=== PATIENT | male | born 1955 | race Caucasian/White ===

== ENCOUNTER 2019-10-30 09:29 | Emergency (ER) | payer OTHER, SELFPAY ==
[2019-10-30 09:42] VITALS: BP 176/96; PULSE 98; RESP 20; TEMP 36.6; O2SAT 98
--- NOTE | 2019-10-30 10:00 | ED.GENADULT ---
HPI - General Adult General Chief complaint: Extremity Injury, Lower Stated complaint: BONE SPUR ON L HEEL Time Seen by Provider: 10/30/19 10:03 Source: patient and RN notes reviewed Mode of arrival: ambulatory Limitations: no limitations History of Present Illness HPI narrative: This is a 64 years old male presents to the office for an evaluation of left foot bone spur flared for three days. He was diagnosted with bone spur in 2016 and saw ornamental iron worker for it. He opt not to do surgery at the time because his pain was controlled with steriod. He has been trying advil for his pain with no relief. His foot doctor is out for conference. Denies recent trauma or injury. Denies history of GI bleeding or kidney disorder. Related Data Allergies Allergy/AdvReac Type Severity Reaction Status Date / Time No Known Allergies Allergy Verified 10/30/19 09:41 Review of Systems Review of Systems: Narrative: CONSTITUTIONAL: Denies fever or feeling ill ENT: Denies congestion CARDIOVASCULAR: Denies chest pain RESPIRATORY: Denies cough GASTROINTESTINAL: Denies nausea, vomiting SKIN: Denies rash MUSCULOSKELETAL:Reports left foot heel pain with slight swelling and painful to walk. He wears boothcamp. NEUROLOGIC: Denies lightheaded PMFSH Past Medical History Medical History Dilated cardiomyopathy Hemochromatosis Hypertension Surgical History Surgical History H/O skin graft History of cholecystectomy Family History Family History Father Hypertension Mother Hypertension COPD (chronic obstructive pulmonary disease) Social History Social History Smoking status: Never smoker Second hand tobacco smoke exposure: Yes Alcohol intake: current Substance use: never Substance use type: does not use Gender identity (if verbalized by the patient): Male Comments At time of signature, I agree with nursing past medical, surgical, social and family history. There is no relevant family history pertinent to the presenting complaint. Exam Narrative: Exam Narrative: GENERAL: This is a well-nourished, well-developed patient, in no apparent distress. CARDIOVASCULAR: Regular rate and rhythm without murmurs, gallops, or rubs. RESPIRATORY: Clear to auscultation. Breath sounds equal bilaterally. No wheezes, rales, or rhonchi. NEURO: awake, alert, and oriented to person, place and time. There were no obvious focal neurologic abnormalities. Steady gait EXTREMITIES: Affected lateral ankle not swollen but there is tenderness over the heel with palpation of the foot. Normal ROM of foot/ankle. Pedal pulse intact. No deformity. The skin is intact. Tru Coma Scale Eye Opening: Spontaneous 4 [place] Coma Scale Motor: Obeys Commands 6 [place] Coma Scale Verbal: Oriented 5 Course Vital Signs Vital signs: Vital Signs Temperature 97.8 F 10/30/19 09:42 Pulse Rate 98 10/30/19 09:42 Respiratory Rate 10/30/19 09:42 Blood Pressure 176/96 H 10/30/19 09:42 Pulse Oximetry 98 10/30/19 09:42 Temperature 97.8 F 10/30/19 09:42 Pulse Rate 98 10/30/19 09:42 Respiratory Rate 10/30/19 09:42 Blood Pressure 176/96 H 10/30/19 09:42 Pulse Oximetry 98 10/30/19 09:42 Medical Decision Making MDM Narrative Medical decision making narrative: Discharge instructions reviewed with patient, as well as provided in writing per nursing staff. The instructions also include specific and strict return/GO TO THE ER as well as f/u information. All questions have been answered, and the patient deny any further questions with discharge and discharge plan. Differential Diagnosis Differential Diagnosis: muscle pain, pain control, arthritis Vital Signs Vital Signs: Vital Signs Temperature 97.8 F 10/30/19 09:
[2019-10-30] MEDS: KETOROLAC 30 MG/ML VIAL (*BKC) 60 MG IM (10:18)
== END 2019-10-30 10:51 | disposition home or self-care (01) ==
PROVIDERS: Emergency Provider Nurse Practitioner; PCP Family Medicine
DX: M79.672 Pain in left foot (principal); I10 Essential (primary) hypertension
CPT/HCPCS: 96372; 99213; G0463; J1885

== ENCOUNTER 2022-12-25 08:45 | Outpatient (CLI) | payer MEDICARE, SELFPAY ==
[2022-12-25 09:10] LABS: Basophils Absolute Auto 0.1 K/mm3 (0.0-0.1); Eosinophils Absolute Auto 0.1 K/mm3 (0-0.3); Eosinophils Percent Auto 1.3 % (0-4.4); Hematocrit 51.5 % (42.0-52.0); Hemoglobin 17.1 g/dL (14.0-18.0); Immature Granulocyte Absolute 0.03 K/mm3 (0.00-0.031); Immature Granulocyte Percent A 0.4 % (0-0.5); Lymphocytes Absolute Auto 1.49 K/mm3 (0.9-3.2); Lymphocytes Percent Auto 21.3 % (18.3-44.2); Mean Corpuscular HGB Conc 33.2 g/dl (32-36); Mean Corpuscular Hemoglobin 31.1 pg (26-34); Mean Corpuscular Volume 93.8 fl (80-100); Mean Platelet Volume 10.4 fl (7.4-10.4); Monocytes Absolute Auto 0.7 K/mm3 (0.1-0.6); Neutrophils Absolute Auto 4.6 K/mm3 (1.3-6.7); Platelet Count Result 193 k/mm3 (150-375); Red Blood Count 5.49 M/mm3 (4.6-6.20); Red Cell Distribution Width 13.3 % (11.5-14.5)
[2022-12-25 10:34] LABS: Iron 186 ug/dL (49-181)
[2022-12-25 10:35] LABS: Cholesterol 171 mg/dL (0-200); HDL Direct 43 mg/dL; Triglycerides 104 mg/dL (<150)
[2022-12-25 10:46] LABS: LDL Cholesterol Direct 103 mg/dL
[2022-12-25 11:06] LABS: Percent Iron Saturation 67 % (20-50)
[2022-12-25 11:10] LABS: Prostate Specific Antigen 1.9 ng/mL (< OR = 4.0)
[2022-12-25 12:55] LABS: Alanine Aminotransferase 34 U/L (6-50); Albumin Level 4.6 g/dL (3.5-5.1); Alkaline Phosphatase 66 U/L (38-126); Anion Gap 11 mmol/L (8-16); Aspartate Amino Transferase 31 U/L (17-59); Bilirubin,Total 1.4 mg/dL (0.2-1.3); Blood Urea Nitrogen 17 mg/dL (9-20); Calcium 9.8 mg/dL (8.4-10.2); Carbon Dioxide 25 mmol/L (22-30); Chloride 104 mmol/L (98-107); Estimated Glomerular Filt Rate > 60; Glucose 104 mg/dL (65-110); Potassium 4.3 mmol/L (3.4-5.0); Sodium 140 mmol/L (137-145)
== END 2022-12-25 08:46 | disposition home or self-care (01) ==
LOC: ANHLAB 08:49
PROVIDERS: Nurse Practitioner; PCP Internal Medicine; Visit Provider Internal Medicine Hematology & Oncology
DX: Z12.5 Encounter for screening for malignant neoplasm of prostate (principal); Z13.220 Encounter for screening for lipoid disorders; E83.110 Hereditary hemochromatosis; I10 Essential (primary) hypertension
CPT/HCPCS: 36415; 80053; 80061; 82728; 83540; 83550; 84153; 85025; G0103

== ENCOUNTER 2023-11-19 12:42 | Outpatient (CLI) | payer MEDICARE, SELFPAY ==
--- NOTE | 2023-11-19 12:45 | ECHO_ITS ---
Patient Info Name: Andrey Guan Age: 68 years : 1955 Gender: Male Ht: 65 in Wt: 265 lbs BSA: 2.41 m2 HR: 67 bpm BP: 160 / 101 mmHg Heart Rhythm: Sinus Rhythm Technical Quality: Good Exam Date: 11/19/2023 1:15 PM Exam Location: Echo Lab Patient Status: Outpatient Admit Date: 11/19/2023 Staff Ordering Physician: Saundra Reece NP Commercial Specialist: Aneta Mehta RDCS Attending Provider: Saundra Reece NP Referring Physician: Shanell TRAVIS; Exam Type: CA echo doppler color flow Study Info Indications - murmur, unsp Complete two-dimensional, color flow and Doppler transthoracic echocardiogram is performed. Summary 1. Complete two-dimensional, color flow and Doppler transthoracic echocardiogram is performed. 2. Left ventricular chamber dimension is normal. 3. Left ventricular systolic function is normal, estimated at 65-70%. 4. There is mildly increased left ventricular wall thickness. 5. The left ventricular diastolic function is grade I diastolic dysfunction. 6. Right ventricular systolic function is normal. 7. No significant valvular disease. Left Ventricle Left ventricular chamber dimension is normal. Left ventricular systolic function is normal, estimated at 65-70%. There is mildly increased left ventricular wall thickness. The left ventricular diastolic function is grade I diastolic dysfunction. Right Ventricle Right ventricular chamber dimension is normal. Right ventricular systolic function is normal. Left Atria Left atrial chamber dimension is normal. Right Atria Right atrial chamber dimension is normal. Atrial Septum Intact interatrial septum visualized by color flow imaging. Aortic Valve The aortic valve is not well visualized. There is no aortic valve stenosis. There is no aortic valve regurgitation. Pulmonic Valve The pulmonic valve is not well visualized. Mitral Valve There is trace mitral valve regurgitation. Tricuspid Valve There is trace tricuspid valve regurgitation. Pericardium/Pleural There is no pericardial effusion. Inferior Vena Cava Inferior vena cava is not well visualized. Aorta The aortic root size at the sinus of Valsalva is normal. Left Ventricular Outflow Tract Name Value Normal LVOT 2D LVOT Diameter 2.0 cm LVOT Doppler LVOT Peak Gradient 6 mmHg LVOT Mean Gradient 4 mmHg LVOT VTI 30 cm LVOT VTI/AV VTI Ratio 0.8 LVOT Stroke Volume 98 ml LVOT CO 6.2 l/min LVOT CI 2.6 l/min/m2 Pulmonic Valve Name Value Normal RVOT Doppler RVOT Peak Gradient 2 mmHg PV Doppler PV Peak Gradient 13 mmHg Mitral Valve
== END 2023-11-19 12:43 | disposition home or self-care (01) ==
LOC: ANHCARD 12:43
PROVIDERS: PCP Internal Medicine; Visit Provider Nurse Practitioner
DX: R01.1 Cardiac murmur, unspecified (principal)
CPT/HCPCS: 93306

== ENCOUNTER 2023-12-28 12:48 | Outpatient (CLI) | payer MEDICARE, SELFPAY ==
[2023-12-28 13:13] LABS: Basophils Absolute Auto 0.1 K/mm3 (0.0-0.1); Basophils Percent Auto 1.1 % (0.2-1.2); Eosinophils Absolute Auto 0.1 K/mm3 (0-0.3); Eosinophils Percent Auto 2.2 % (0-4.4); Hematocrit 49.3 % (42.0-52.0); Hemoglobin 16.4 g/dL (14.0-18.0); Immature Granulocyte Absolute 0.04 K/mm3 (0.00-0.031); Immature Granulocyte Percent A 0.6 % (0-0.5); Lymphocytes Percent Auto 26.1 % (18.3-44.2); Mean Corpuscular HGB Conc 33.3 g/dl (32-36); Mean Corpuscular Hemoglobin 31.1 pg (26-34); Mean Corpuscular Volume 93.5 fl (80-100); Monocytes Absolute Auto 0.6 K/mm3 (0.1-0.6); Monocytes Percent Auto 9.5 % (2.6-8.5); Neutrophils Absolute Auto 3.9 K/mm3 (1.3-6.7); Neutrophils Percent Auto 60.5 % (45.5-73.1); Platelet Count Result 182 k/mm3 (150-375); Red Blood Count 5.27 M/mm3 (4.6-6.20); Red Cell Distribution Width 13.2 % (11.5-14.5); White Blood Count 6.5 K/mm3 (4.5-10.0)
[2023-12-28 21:31] LABS: Iron 133 ug/dL (49-181)
[2023-12-28 21:41] LABS: Percent Iron Saturation 49 % (20-50)
[2023-12-28 21:59] LABS: Alanine Aminotransferase 30 U/L (6-50); Albumin Level 4.2 g/dL (3.5-5.1); Alkaline Phosphatase 58 U/L (38-126); Anion Gap 8 mmol/L (4-12); Aspartate Amino Transferase 29 U/L (17-59); Blood Urea Nitrogen 19 mg/dL (9-20); Calcium 9.2 mg/dL (8.4-10.2); Carbon Dioxide 26 mmol/L (22-30); Chloride 107 mmol/L (98-107); Cholesterol 175 mg/dL (0-200); Estimated Glomerular Filt Rate 60; Glucose 89 mg/dL (65-110); HDL Direct 45 mg/dL; Potassium 4.4 mmol/L (3.4-5.0); Sodium 141 mmol/L (137-145); Triglycerides 104 mg/dL (<150)
[2023-12-28 22:29] LABS: LDL Cholesterol Direct 115 mg/dL; Prostate Specific Antigen 2.5 ng/mL (< OR = 4.0)
== END 2023-12-28 12:49 | disposition home or self-care (01) ==
LOC: ANHLAB 12:51
PROVIDERS: Nurse Practitioner; PCP Internal Medicine; Visit Provider Internal Medicine Hematology & Oncology
DX: I10 Essential (primary) hypertension (principal); Z12.5 Encounter for screening for malignant neoplasm of prostate; Z13.220 Encounter for screening for lipoid disorders; E83.110 Hereditary hemochromatosis
CPT/HCPCS: 36415; 80053; 80061; 82728; 83540; 83550; 84153; 85025; G0103

== ENCOUNTER 2024-01-13 03:18 | Day surgery (SDC) | payer MEDICARE, SELFPAY ==
[2023-12-31 12:55] VITALS: BMI 44.1
[2024-01-13 10:18] VITALS: BP 172/96; PULSE 89; RESP 18; TEMP 36.4; O2SAT 98; BMI 46.1
[2024-01-13] MEDS: LACTATED RINGERS 1,000 ML 150 ML IV CONT (10:31)
--- NOTE | 2024-01-13 10:47 | PM.HPGS ---
History of Present Illness History of Present Illness Consent: Risks, benefits, and alternatives have been discussed and questions answered. Patient agrees to proceed with procedure. Chief complaint: neoplasm screening Narrative: Andrey Guan is a 68 year old male with colon polyp in 2018 Review of Systems Review of Systems: All systems reviewed & are unremarkable except as noted in HPI and below PMFSH Past Medical History Medical History (Updated 01/13/24 @ 10:47 by Terry Rasmussen MD) Colon polyp Hemochromatosis Hypertension Surgical History Surgical History H/O skin graft History of cholecystectomy Family History Family History Father Hypertension Cerebrovascular accident Mother Hypertension COPD (chronic obstructive pulmonary disease) Social History Social History Smoking status: Never smoker Second hand tobacco smoke exposure: No Alcohol intake: current Alcohol use details: consumes 6 beers yearly Substance use: never Substance use type: does not use Lack of Transportation: No Lack of Food: Never True Current Housing: I Have Housing Concerned About Future Housing: No Difficulty Paying Gas/Electric Bills: No Difficulty Paying for Meds: No Currently Unemployed: No Education: High School Diploma/GED Difficulty w/ Childcare or Family Care: No Living arrangements: with family Occupation/Education: retired Gender identity (if verbalized by the patient): Male Spiritual care concerns: No Meds Home Medications and Allergies Home Medications Medication Instructions Recorded Confirmed Type aspirin 81 mg tablet 81 mg PO DAILY 07/24/23 01/13/24 History metoprolol succinate 25 mg 25 mg PO DAILY #90 tabs 10/27/23 01/13/24 Rx tablet,extended release 24 hr lisinopril 40 mg tablet 40 mg PO DAILY #90 tabs 12/08/23 01/13/24 Rx Allergies Allergy/AdvReac Type Severity Reaction Status Date / Time No Known Allergies Allergy Verified 01/13/24 10:17 Vital Signs Vital Signs - 24 hr 01/13/24 10:18 Temperature 97.5 F L Pulse Rate 89 Respiratory Rate 18 Blood Pressure 172/96 H Pulse Oximetry 98 Oxygen Delivery Room Air Exam Const: General: comfortable and no acute distress HENMT: Face/Nose/Sinus: Normal nares present Eyes: General: appearance normal, both eyes and all related structures Neck: Neck: no JVD Resp: Auscultation: clear to auscultation bilaterally Cardio: Rate: regular rate Rhythm: regular rhythm GI: Inspection: non-distended GI Palp: Yes Soft to palpation Skin: General skin exam: normal color Neuro: General: gait normal Speech: normal speech Extrem: General: normal to inspection Psych: Mental Status: mental status grossly normal Assessment and Plan Assessment and plan (1) Colon polyp: Code(s): K63.5 - Polyp of colon Status: Acute Assessment and Plan: colonoscopy
--- NOTE | 2024-01-13 10:49 | WPDANESEPPF ---
Anes - Initial Pre Proc Eval Procedure: Operation Date: 01/13/24 11:30 Proposed Procedures p Screening Colonoscopy - Terry Rasmussen MD Date/Time: 01/13/24 10:49 Surgeon: Terry Rasmussen MD Pre Op Diagnosis: neoplasm screening Patient Data Age: 68 Gender: M Height: 1.65 m Weight: 125.9 kg Last Vital Signs Temp 97.5 F L 01/13/24 10:18 Pulse 89 01/13/24 10:18 Resp 18 01/13/24 10:18 BP 172/96 H 01/13/24 10:18 Pulse Ox 98 01/13/24 10:18 O2 Del Method Room Air 01/13/24 10:18 Allergies Allergy/AdvReac Type Severity Reaction Status Date / Time No Known Allergies Allergy Verified 01/13/24 10:17 Home Medications Medication Instructions Recorded Confirmed Type aspirin 81 mg tablet 81 mg PO DAILY 07/24/23 01/13/24 History metoprolol succinate 25 mg 25 mg PO DAILY #90 tabs 10/27/23 01/13/24 Rx tablet,extended release 24 hr lisinopril 40 mg tablet 40 mg PO DAILY #90 tabs 12/08/23 01/13/24 Rx Patient hx anesthesia problems: none Family hx anesthesia problems: none Results Review: All pre-operative results and documents have been reviewed as part of the pre-operative evaluation. [facility] Past Medical History Medical History (Updated 01/13/24 @ 10:47 by Terry Rasmussen MD) Colon polyp Hemochromatosis Hypertension Surgical History Surgical History H/O skin graft History of cholecystectomy Family History Family History Father Hypertension Cerebrovascular accident Mother Hypertension COPD (chronic obstructive pulmonary disease) Social History Social History Smoking status: Never smoker Second hand tobacco smoke exposure: No Alcohol intake: current Alcohol use details: consumes 6 beers yearly Substance use: never Substance use type: does not use Lack of Transportation: No Lack of Food: Never True Current Housing: I Have Housing Concerned About Future Housing: No Difficulty Paying Gas/Electric Bills: No Difficulty Paying for Meds: No Currently Unemployed: No Education: High School Diploma/GED Difficulty w/ Childcare or Family Care: No Living arrangements: with family Occupation/Education: retired Gender identity (if verbalized by the patient): Male Spiritual care concerns: No Anes - Eval Final PreProcedure Day of Procedure 01/13/24 10:49 Patient weight: morbidly obese Heart: regular rate and rhythm Lungs: clear to auscultation Airway: Mallampati scale class II Neurological: alert and oriented Last oral intake: >/= 8 hours ASA classification: III Emergent: no Anesthetic plan: proceed Anesthesia type and monitoring: general GIVS and standard monitoring Results Review: All pre-operative results and documents have been reviewed as part of the pre-operative evaluation. Informed Consent: The patient's anesthetic plan and its attendant risks and benefits were discussed with the patient/family/POA. Questions were solicited and answers provided to the satisfaction of the patient/family/POA.
[2024-01-13 11:01] VITALS: BP 134/83; PULSE 84; RESP 17; O2SAT 94
[2024-01-13 11:11] VITALS: BP 145/78; PULSE 83; RESP 19; O2SAT 98
[2024-01-13 11:21] VITALS: BP 149/94; PULSE 80; RESP 26; O2SAT 98
== END 2024-01-13 11:28 | disposition home or self-care (01) ==
PROVIDERS: PCP Internal Medicine; Referring Provider Nurse Practitioner; Visit Provider Internal Medicine Gastroenterology
PROC: 0DJD8ZZ Inspection of Lower Intestinal Tract, Via Natural or Artificial Opening Endoscopic (ICD-10-PCS; CPT 45378; principal; 2024-01-13 11:30)
DX: Z12.11 Encounter for screening for malignant neoplasm of colon (principal); K57.30 Diverticulosis of large intestine without perforation or abscess without bleeding; K64.8 Other hemorrhoids; Z86.010 Personal history of colon polyps; I10 Essential (primary) hypertension; Z79.82 Long term (current) use of aspirin; E66.01 Morbid (severe) obesity due to excess calories; Z68.42 Body mass index [BMI] 45.0-49.9, adult
CPT/HCPCS: G0105; J2704; J7120

== ENCOUNTER 2025-01-31 09:26 | Outpatient (CLI) | payer MEDICARE, SELFPAY ==
--- OUTSIDE RECORDS SUMMARY | 2025-01-31 09:41 | XMS_ITS | Clinical Summary ---
Author Organization [facility] Address [address] [address] Phone Care Team Providers Care Key Carrier Name Role Phone Mana Fleming MD Primary Care Provi guillermo Social History Tobacco Use Types Packs/Day Years Used Date Smoking Tobacco: Never Assessed Sex and Gender Information Value Date Recorded Sex Assigned at Not on file Legal Sex Male 11:51 PM CDT Gender Identity Not on file Sexual Orientation Not on file Plan of Treatment Health Maintenance Due Date Last Done Comments Hepatitis C Virus (HCV) Screening 1955 TdaP Immunization 1955 Cologuard 2006 Immunochemical Fecal Occult Blood 2006 Pneumococcal Immunization (5 0+ years) (1 of 1 - PCV) 2006 Zoster Immunization (1 of 2) 2006 PSA Discussion 2011 Colonoscopy 05/12/2020 05/12/2018, 02/23/2012 Colorectal Cancer Screening 05/12/2020 Influenza Immunization (#1) 2024 SARS-COV-2 Immunization ( - season) 2024 Respiratory Syncytial Virus (RSV) Immunization (Adult) (1 - 1-dose 75+ series) 2031 05/12/2018, 02/23/2012 Hepatitis B Immunization Aged Out No longer eligible based on patient's age to complete this topic Meningococcal Immunization (ACWY) Aged Out No longer eligible b ased on patient's age to complete this topic Rotavirus Immunization Aged Out No lo nger eligible based on patient's age to complete this topic Procedures Procedure Name Priority Date/Time Associated Diagnosis Comments COLONOSCOPY Routine 05/12/2018 from Last 3 Months or Most Recently Relevant to Health Maintenance Results * COLONOSCOPY (05/12/2018) John Mathews DO PROCEDURE/MINOR SURGICAL ORDERA BLES Final Result from Last 3 Months or Most Recently Relevant to Health Maintenance Care Teams Key Carrier Relationship Specialty Start Date End Date Mana Fleming MD [address] [place] [address] PCP - General Family Medicine 05/20/18
--- OUTSIDE RECORDS SUMMARY | 2025-01-31 09:41 | XMS_ITS | Clinical Summary ---
Author Organization [facility] Address [address] [place] [address] Phone Care Team Providers Care Bronzer Name Role Phone Mana Gan MD Unavailable [phone] Morris Zuniga MD Unavailable [phone] Master Reddy DO Primary Care Provider [phone] Allergies No known active allergies Medications metoprolol XL (Toprol XL) 25 mg extended release tablet Toprol XL 25 mg tablet,exten ded release Active lisinopriL (PRINIVIL,ZESTR [place]) 40 mg tablet TK 1 T PO D 02/01/2020 Active Active Problems Problem Noted Date Diagnosed Date 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 05/21/2018 Immunizations Immunization Administration Dates Next Due Tdap 08/08/2019 Social History Tobacco Use Types Packs/Day Years Used Date Smoking Tobacco: Never Smokeless Tobacco: Never Alcohol Use Standard Drinks/Week Comments Yes 0 (1 standard drink = 0.6 oz pur e alcohol) Personal Safety Answer Date Recorded Getting School Help Needed Not on file 11/13 Sex and Gender Information Value Date Recorded Sex Assigned at Not on file Legal Sex Male 11:28 AM ELEPHANT TAMER Gender Identity Male 01/19/2018 3:52 PM CDT Sexual Orientation Not on file Obstetrics History Last Filed Vital Signs Vital Sign Reading Time Taken Comments Blood Pressure 155/85 03/24/2022 2:00 PM CDT Pulse 72 03/24/2022 2:00 PM CDT Temperature 36.8 C (98.2 F) 03/24/2022 2:00 PM CDT Respiratory Rate 16 03/24/2022 2:00 PM CDT Oxygen Saturation 96% 03/24/2022 2:00 PM CDT Inhaled Oxygen Concentration - - Weight 128.5 kg (283 lb 3.2 oz) 03/24/2022 2:00 PM CDT Height 165.1 cm (5' 5 ) 03/24/2022 2:00 PM CDT Body Mass Index 47.13 03/24/2022 2:00 PM CDT Plan of Treatment Not on file Insurance MEDICARE [facility] MEDICARE A[employer] Care Teams Bronzer Relationship Specialty Start Date End Date Master Reddy DO PCP - General Internal Medicine 12/23/21 Mana Gan MD Family Practice 11/18/19 Morris Zuniga MD Medical Oncologist/Historiography Professor Hematology and Oncology 09/16/18
--- OUTSIDE RECORDS SUMMARY | 2025-01-31 09:41 | XMS_ITS | Clinical Summary ---
Author Organization [facility] Address [address] [place] [address] Care Team Providers Care Sewing Supervisor Name Role Phone Master Reddy Primary Care Provider Allergies No known active allergies Medications lisinopriL (PRINIVIL) 40 mg tablet Take 40 mg by mouth daily. 05/16/2022 Active metoprolol succinate (TOPROL XL) 25 mg Extended Release 24 hour tablet Toprol XL 25 mg tablet,exten ded release Active aspirin (ECOTRIN EC) 81 mg Tablet, Delayed Release (E.C.) Take 81 mg by mouth daily. Active Active Problems Problem Noted Date Diagnosed Date Hereditary hemochromatosis 05/23/2022 Social History Tobacco Use Types Packs/Day Years Used Date Smoking Tobacco: Never Smokeless Tobacco: Never Tobacco Cessation:Counseling Given: Not Answered Sex and Gender Information Value Date Recorded Sex Assigned at Not on file Legal Sex Male 1:27 PM CDT Gender Identity Not on file Sexual Orientation Not on file Last Filed Vital Signs Vital Sign Reading Time Taken Comments Blood Pressure 174/68 10/07/2024 9:29 AM PRACTICING MD ANESTHESIOLOGIST Pulse 70 10/07/2024 9:27 AM PRACTICING MD ANESTHESIOLOGIST Temperature 36.7 C (98 F) 10/07/2024 9:27 AM PRACTICING MD ANESTHESIOLOGIST Respiratory Rate 16 10/07/2024 9:27 AM PRACTICING MD ANESTHESIOLOGIST Oxygen Saturation 98% 10/07/2024 9:27 AM PRACTICING MD ANESTHESIOLOGIST Inhaled Oxygen Concentration - - Weight 133 kg (293 lb 3.2 oz) 10/07/2024 9:27 AM PRACTICING MD ANESTHESIOLOGIST Height 165.1 cm (5' 5 ) 05/23/2022 11:49 AM CDT Body Mass Index 48.79 05/23/2022 11:49 AM CDT Plan of Treatment Upcoming Encounters Date Type Department Care Team (Late st Contact Info) Description 02/07/2025 2:15 PM CDT Office Visit [facility] Oncology and Hematology - [address] [place] [address] Estiven Santos MD [address] [place] [address] Health Maintenance Due Date Last Done Comments Pre-Diabetes and Diabetes Screening 1955 Traditional Medicare (ACO) A nnual Wellness Visit 1975 FIT-DNA Q 3 years 2001 FIT/FOBT Q 1 year 2001 Flex Sig/CT Colonography Q 5 years 2001 PNEUMOCOCCAL VACCINE 50+ YEA RS (1 of 1 - PCV) 2006 ZOSTER VACCINE (1 of 2) 2006 RSV VACCINE (60+ or ) (1 - Risk 60-74 years 1-dose series) 2016 INFLUENZA VACCINE (#1) 2024 DTAP/TDAP/TD VACCINES (2 - Td or Tdap) 08/08/2029 COLORECTAL SCREENING 01/12/2034 01/13/2024, 05/12/20 18 Colorectal Cancer Screening 01/12/2034 Insurance MEDICARE PART A AND B [facility] [id number] [place] [id number] Care Teams Sewing Supervisor Relationship Specialty Start Date End Date Master Reddy DO [address] [place] [address] PCP - General Internal Medicine 05/23/22
--- OUTSIDE RECORDS SUMMARY | 2025-01-31 09:41 | XMS_ITS | Referral Summary ---
Author Organization [facility] Address [address] [place] [address] Phone Care Team Providers Care Consumer Science Teacher Name Role Phone Mana Gan MD Unavailable [phone] Morris Zuniga MD Unavailable [phone] Master Reddy DO Primary Care Provider [phone] Allergies No known active allergies Medications metoprolol [...] on file Legal Sex Male 11:28 AM FIELD ADMINISTRATIVE ASSISTANT Gender Identity Male 01/19/2018 3:52 PM CDT Sexual Orientation Not on file Last Filed [...] of Treatment Not on file Insurance MEDICARE [facility] MEDICARE [employer] Care Teams Consumer Science Teacher Relationship Specialty Start Date End Date Master Reddy DO PCP - General Internal Medicine 12/23/21 Mana Gan MD Family Practice 11/18/19 Morris Zuniga MD Medical Oncologist/Director Of Dementia Operations Hematology and Oncology 09/16/18
[2025-01-31 13:37] LABS: Alanine Aminotransferase 38 U/L (6-50); Albumin Level 4.1 g/dL (3.5-5.1); Alkaline Phosphatase 54 U/L (38-126); Anion Gap 6 mmol/L (4-12); Aspartate Amino Transferase 54 U/L (17-59); Bilirubin,Total 0.9 mg/dL (0.2-1.3); Blood Urea Nitrogen 22 mg/dL (9-20); Calcium 8.9 mg/dL (8.4-10.2); Carbon Dioxide 31 mmol/L (22-30); Chloride 105 mmol/L (98-107); Cholesterol 160 mg/dL (0-200); Estimated Glomerular Filt Rate 57; Glucose 76 mg/dL (65-110); HDL Direct 42 mg/dL; Potassium 4.3 mmol/L (3.4-5.0); Sodium 142 mmol/L (137-145); Triglycerides 105 mg/dL (<150)
[2025-01-31 13:48] LABS: LDL Cholesterol Direct 91 mg/dL
[2025-01-31 14:02] LABS: Prostate Specific Antigen 2.3 ng/mL (< OR = 4.0)
== END 2025-01-31 09:27 | disposition home or self-care (01) ==
PROVIDERS: PCP Internal Medicine; Visit Provider Nurse Practitioner
DX: R94.4 Abnormal results of kidney function studies (principal); Z13.220 Encounter for screening for lipoid disorders; Z12.5 Encounter for screening for malignant neoplasm of prostate
CPT/HCPCS: 36415; 80053; 80061; 84153; G0103

== ENCOUNTER 2025-03-18 08:50 | Emergency (ER) | payer MEDICARE, SELFPAY ==
[2025-03-18 08:59] VITALS: BP 168/87; PULSE 75; RESP 16; TEMP 36.1; O2SAT 96
--- NOTE | 2025-03-18 09:30 | ED.LOWEXIN ---
HPI - Extremity Injury (Lower) General Chief Complaint: Extremity Problem,Nontraumatic Stated Complaint: Right Foot Pain Source: patient Mode of arrival: ambulatory Limitations: no limitations History of Present Illness HPI Narrative: 69 y/o male presented for c/o right Achilles pain. Onset 1 week. Patient says symptoms started after mowing the grass, and says he has been walking over a mi every day for exercise. Says he has had Achilles tendinitis bilaterally on several occasions in the past and has taken steroids which helped. Also has a walking boot at home. Patient has been walking with a cane. Took ibuprofen. Denies numbness, tingling, weakness. Related Data Home Medications ?Medication ?Instructions ?Recorded ?Confirmed ?Last Taken ?Type aspirin 81 mg tablet 81 mg PO DAILY 07/24/23 11/10/24 Unknown History Allergies Allergy/AdvReac Type Severity Reaction Status Date / Time No Known Allergies Allergy Verified 03/18/25 09:36 Review of Systems Review of Systems: CONSTITUTIONAL: Denies body aches, fever, chills EYES: Denies visual changes ENT: Denies rhinorrhea, congestion CARDIOVASCULAR: Denies chest pain, palpitations, or edema. RESPIRATORY: Denies cough or dyspnea. SKIN: Denies rash, itching, or wounds. MUSCULOSKELETAL: reports right ankle pain denies back pain, joint pain, or myalgia. NEUROLOGIC: Denies headache, numbness, tingling, or weakness. All systems reviewed & are unremarkable except as noted in HPI and below PMFSH Past Medical History Medical History Colon polyp Hypertension Hemochromatosis Surgical History Surgical History H/O skin graft History of cholecystectomy Family History Family History Father Hypertension Cerebrovascular accident Mother Hypertension COPD (chronic obstructive pulmonary disease) Social History Social History Smoking status: Never smoker Second hand tobacco smoke exposure: No Alcohol intake: current Alcohol use details: consumes 6 beers yearly Substance use: never Substance use type: does not use Lack of Transportation: No Lack of Food: Never True Current Housing: I Have Housing Concerned About Future Housing: No Difficulty Paying Gas/Electric Bills: No Difficulty Paying for Meds: No Currently Unemployed: No Education: High School Diploma/GED Difficulty w/ Childcare or Family Care: No Living arrangements: with family Occupation/Education: retired Gender identity (if verbalized by the patient): Male Spiritual care concerns: No Comments At time of signature, I have reviewed and agree with nursing past medical, surgical, social and family history unless otherwise noted. Please see nursing chart for further information. There is no relevant family history pertinent to the presenting complaint Exam Narrative: GENERAL: Well-appearing, well-nourished, and in no acute distress. CHEST: Speaks in full sentences. No respiratory distress. HEART: Regular rate and rhythm. Normal and equal peripheral pulses. EXTREMITIES: Right achilles insertion site mildly erythematous and tender with palpation. Tendon reflex intact. Right foot has normal strength and sensation, normal range of motion at ankle but reports pain with movement and weight bearing. No ecchymosis, No open wounds. alignment normal, pulse palpable and equal bilaterally, skin warm, dry, pink. Capillary refill less than 3 seconds. SKIN: Warm, dry, no rash. NEURO: Alert and oriented x3. PSYCH: Normal mood and affect Course Course Emergency Course: Patient is aware of diagnosis, understands and agrees to treatment plan. Anticipatory guidance given. Patient agrees to follow-up as directed and is aware of reasons to seek care at the emergency department. Portions of this record may have been created with voice recognition software Level of Care: Express Care Visit Vital Signs Vital signs: Vital Signs Temperature 96.9 F L 03/18/25 08:59 Pulse Rate 75 03/18/25 08:59 Respiratory Rate 16 03/18/25 08:59 Blood Pressure 168/87 H 03/18/25 08:59 Pulse Oximetry 96 03/18/25 08:59 Temperature 96.9 F L 03/18/25 08:59 Pulse Rate 75 03/18/25 08:59 Respiratory Rate 16 03/18/25 08:59 Blood Pressure 168/87 H 03/18/25 08:59 Pulse Oximetry 96 03/18/25 08:59 Reviewed MDM - Extremity Injury (Lower) MDM Narrative Medical decision making narrative: Discussed physical exam findings c/w right achilles tendonitis. Tendon intact. Rx methylpred. He has a boot at home from previous. Pt plans to f/u with platform consultant. Advised supportive measures and signs/symptoms to go to the ER. Pt is appropriate for outpt treatment and f/u. Differential Diagnosis Differential diagnosis: Likely ankle sprain and strain, ankle fracture and other (achilles tendonitis, heel spur, gout) Discharge Plan Discharge Clinical Impression: Achilles tendinitis Patient Disposition: Home Condition: Stable Instructions: Achilles Tendinitis (ED) Additional Instructions: Rest (avoid excessive walking or anything that worsens the pain) elevate the Right leg; bear weight as tolerated. Use the walking boot you have at home when you are up walking. Apply ice 15-20 minute intervals several times a day Keep it wrapped with LANDON or use a soft ankle splint Take steroid as directed Tylenol 1000mg every 8 hours as needed Follow up with your primary care provider as needed Follow up with platform consultant as planned go to the ER for any worsening symptoms or concerns Patient Language: Persian Prescriptions: New methylprednisolone [Medrol (Jean)] 4 mg tablets,dose pack See Rx Instructions .ROUTE .COMPLEX Qty: 21 0RF Rx Instructions: orally per package directions No Action Adult Low Dose Aspirin 81 mg Tablet 81 mg PO DAILY lisinopril 40 mg tablet 40 mg PO DAILY Qty: 90 3RF metoprolol succinate 25 mg tablet extended release 24 hr 25 mg PO DAILY Qty: 90 3RF Follow-up/Referrals: Master Reddy DO [Primary Care Provider] - Time of Disposition: 09:42
== END 2025-03-18 09:49 | disposition home or self-care (01) ==
PROVIDERS: Emergency Provider Nurse Practitioner Family; PCP Internal Medicine
DX: M76.61 Achilles tendinitis, right leg (principal); I10 Essential (primary) hypertension; E83.119 Hemochromatosis, unspecified; Z86.0100 Personal history of colon polyps, unspecified
CPT/HCPCS: 99213; G0463